=== PATIENT | female | born 1980 | race Caucasian/White ===

== ENCOUNTER 2021-11-14 12:25 | Emergency (ER) | payer SELFPAY ==
[2021-11-14] MEDS ORDERED: Acetaminophen 500 MG TAB ONE (14:19)
[2021-11-14] MEDS ORDERED: Ibuprofen 200 MG TAB ONE (14:19)
== END 2021-11-14 14:37 | disposition home or self-care (01) ==
LOC: ERS 12:25
DX: M25.572 Pain in left ankle and joints of left foot (principal); W19.XXXA Unspecified fall, initial encounter